=== PATIENT | male | born 1965 | race Caucasian/White ===

== ENCOUNTER → 2019-08-30 | Day surgery (SDC) | payer MEDICARE, OTHER ==
[2019-08-24 12:52] VITALS: BMI 18.2
[~2019-08-30] MED LIST: ALBUTEROL NEB (CONC) 2.5 MG/0.5 ML INHALATION ONE; ATROPINE SULFATE 0.4 MG/ML 1 ML VIAL IM ONE; GLYCOPYRROLATE 0.2 MG/ML 2 ML VIAL ONE; KETAMINE 10 MG/ML 20 ML VIAL ONE; LACTATED RINGERS 1,000 ML IV ONE; LACTATED RINGERS 1,000 ML IV SCH; LIDOCAINE 1% 20 ML VIAL (10MG/ML) FOR IV START INTRADERMA PRN; LIDOCAINE 1% INJ 10MG/ML (20 ML MDV) ONE; LIDOCAINE 2% (PF) 20 MG/ML 5 ML VIAL INHALATION ONE; LIDOCAINE 2% INJ 20 MG/ML INTRATRACH ONE; LIDOCAINE VISCOUS 300 MG/15 ML CUP MUCOUS MEM ONE; MIDAZOLAM 2 MG/2 ML VIAL ONE; PROPOFOL 10 MG/ML 20 ML VIAL IV ONE; SODIUM CHLORIDE 0.9% 1,000 ML IV SCH; fentaNYL (PF) 50 MCG/ML 2 ML AMP ONE
[2019-08-30 11:32] VITALS: RESP 20; TEMP 98.2
[2019-08-30 13:47] VITALS: BP 116/73; PULSE 123
[2019-08-30 17:28] LABS: Appearance,BF Hazy; Color,BF Red; Nucleated Cells, Body Fluid 650 /uL; RBC, Body Fluid 15250 /uL
[2019-08-30 18:56] LABS: Mononuclear WBC,Body Fluid 1 %; Polynuclear WBC,Body Fluid 98 %
--- NOTE | 2019-08-30 21:35 | PCN ---
PROCEDURE NOTE PROCEDURE PERFORMED: Bronchoscopy, airway examination, therapeutic lavage, BAL right middle lobe, right lower lobe. PREOPERATIVE DIAGNOSIS: Atypical mycobacterial infection. POSTOP DIAGNOSIS: Atypical mycobacterial infection. OPERATORS: Dr. Crump and Dr. Webster. SEDATION: DRAG CAR RACER provided general anesthesia and unconscious sedation. DESCRIPTION OF PROCEDURE: There was informed consent and universal timeout. The patient's procedure took place in room #1. After the patient was adequately sedated and being fully monitored, the bronchoscope was inserted through the right nostril. It passed through the right nasopharynx into the oropharynx. The hypopharynx was identified and topicalized. The hypopharyngeal structures including anterior commissure, true cords, false cords, arytenoids, piriform sinuses, right and left vallecula, epiglottis all appeared relatively normal. The glottic opening was topicalized. After topicalization, the bronchoscope was pushed through the glottic opening into the trachea. The trachea appeared normal. Tracheal alexia was sharp. The right and left mainstem were topicalized. The right upper lobe and its 3 segments, right middle lobe and its 2 segments, right lower lobe and its 5 segments, the left upper lobe proper and its 2 segments, the lingula and its 2 segments and the left lower lobe and its 4 segments all had similar findings of mild diffuse bronchitis throughout. There was mild erythema and hyperemia of the airways. There were thin secretions noted throughout. There was no dominant mass or tumor. The bronchoscope was wedged into the right middle lobe. The BAL took place; 30 mL was recovered. It will be sent to the laboratory for analysis. There was no immediate complication. The patient will be recovered. MMODL / IJN: [id number] /
== END ==
LOC: ORWHC2ENDO 11:04
PROVIDERS: ATTEND Internal Medicine Critical Care Medicine
DX: J20.9 Acute bronchitis, unspecified (principal); A31.0 Pulmonary mycobacterial infection; Z88.6 Allergy status to analgesic agent; Z88.8 Allergy status to other drugs, medicaments and biological substances; Z88.1 Allergy status to other antibiotic agents
CPT/HCPCS: 94640; 87798 ×3; 87496; 87498; 87529; 88108; 88305; 89050; 87252; 87502; 87634; 87070; 87205; 87116; 87102; 87206; 31624; J2001 ×3; J2250; J0461; J3010; J2704